=== PATIENT | male | born 1950 | race Caucasian/White ===

== ENCOUNTER 2021-02-20 14:19 | Emergency (ER) | payer MEDICARE, MEDICAID, SELFPAY ==
[2021-02-20 14:37] VITALS: BP 109/107; PULSE 93; RESP 18; TEMP 37; O2SAT 99
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
--- NOTE | 2021-02-20 16:28 | PC.NURSE ---
BP ENTERED IN ERROR UPON ARRIVAL CORRECT BP WAS 190/107
== END 2021-02-20 16:05 | disposition home or self-care (01) ==
PROVIDERS: Emergency Provider Nurse Practitioner Family; PCP Physician Assistant
DX: S70.361A Insect bite (nonvenomous), right thigh, initial encounter (principal); S70.362A Insect bite (nonvenomous), left thigh, initial encounter; L08.9 Local infection of the skin and subcutaneous tissue, unspecified; W57.XXXA Bitten or stung by nonvenomous insect and other nonvenomous arthropods, initial encounter; S70.321A Blister (nonthermal), right thigh, initial encounter; F17.210 Nicotine dependence, cigarettes, uncomplicated; J44.9 Chronic obstructive pulmonary disease, unspecified; I25.110 Atherosclerotic heart disease of native coronary artery with unstable angina pectoris; F03.90 Unspecified dementia, unspecified severity, without behavioral disturbance, psychotic disturbance, mood disturbance, and anxiety; F32.9 Major depressive disorder, single episode, unspecified; F41.9 Anxiety disorder, unspecified; I25.2 Old myocardial infarction; Z86.19 Personal history of other infectious and parasitic diseases; H35.30 Unspecified macular degeneration
CPT/HCPCS: 99213; G0463

== ENCOUNTER 2023-04-03 14:59 | Emergency (ER) | payer MEDICARE, MEDICAID, SELFPAY ==
--- NOTE | ~2023-04-03 | XR_ITS ---
XR chest 2V 04/03/2023 15:18 Indication: Cough and wheezing. Coarse breath sounds. Procedure: 2 view chest Comparison: Comparison to multiple prior studies sequentially, with oldest reviewed study dated 07/2009. Findings: Heart size normal. No focal air space disease, pulmonary edema, pleural effusion or suspect ed pneumothorax. There are foreign bodies in the soft tissues overlying the chest. Impression: 1: No acute cardiopulmonary disease. Reviewed, dictated and finalized at location B. Impression: 1: No acute cardiopulmonary disease.
[2023-04-03 15:09] VITALS: BP 154/78; PULSE 63; RESP 28; TEMP 36.9; O2SAT 93
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
--- NOTE | 2023-04-03 15:27 | PC.NURSE ---
O2 added at 3L per home routine.
[2023-04-03] MEDS: ALBUTEROL SULFATE NEB 2.5 MG/3 ML INH INHALATION (15:39)
[2023-04-03] MEDS: IPRATROPIUM BR 0.02% INH SOLN 0.5 MG/2.5 ML VIAL INHALATION (15:40)
--- NOTE | 2023-04-03 15:49 | PC.NURSE ---
nebulizer changed to face mask for pt
== END 2023-04-03 16:25 | disposition home or self-care (01) ==
PROVIDERS: Emergency Provider Nurse Practitioner; PCP Hospitalist
DX: J44.1 Chronic obstructive pulmonary disease with (acute) exacerbation (principal); I11.0 Hypertensive heart disease with heart failure; I50.9 Heart failure, unspecified; I25.10 Atherosclerotic heart disease of native coronary artery without angina pectoris; I48.91 Unspecified atrial fibrillation; F03.90 Unspecified dementia, unspecified severity, without behavioral disturbance, psychotic disturbance, mood disturbance, and anxiety; F17.210 Nicotine dependence, cigarettes, uncomplicated; Z20.822 Contact with and (suspected) exposure to COVID-19
CPT/HCPCS: 71046; 87426; 87804; 94640; 99213; C9803; G0463